=== PATIENT | male | born 1970 ===

== ENCOUNTER 2017-08-27 11:06 | Emergency (ER) | payer BC ==
[2017-08-27 12:13] VITALS: BP 131/93
--- NOTE | 2017-08-27 12:31 | UC ---
Lower Extremity/Ankle HPI - HPI Summary HPI Summary: LEFT FOOT PAIN X 1 DAY + INJURY , A PICTURE FELL ON HIS FOOT THIS MORNING + PAIN AND SWELLING OF LEFT FOOT - History of Current Complaint Chief Complaint: UCLowerExtremity Stated Complaint: LEFT FOOT COMPLAINT Time Seen by Provider: 08/27/17 12:18 Hx Obtained From: Patient Onset/Duration: Sudden Onset, Lasting Hours - 2 Severity Initially: Severe Severity Currently: Moderate Aggravating Factor(s): Standing, Ambulation Alleviating Factor(s): Rest, Elevation, Ice Able to Bear Weight: Yes - Allergies/Home Medications Allergies/Adverse Reactions: Allergies Allergy/AdvReac Type Severity Reaction Status Date / Time No Known Allergies Allergy Verified 08/27/17 12:13 Home Medications: Home Medications Warfarin TAB(*) [Coumadin TAB(*)] 10 08/27/17 [History] PMH/Surg Hx/FS Hx/Imm Hx Previously Healthy: Yes - Surgical History Surgical History: Yes Surgery Procedure, Year, and Place: SINUS SURGERY - Family History Known Family History: Negative: Diabetes - Social History Alcohol Use: Rare Substance Use Type: Marijuana Smoking Status (MU): Never Smoked Tobacco - Immunization History Most Recent Influenza Vaccination: NOT CURRENT Review of Systems Constitutional: Negative Skin: Negative Eyes: Negative ENT: Negative Respiratory: Negative Cardiovascular: Negative Is Patient Immunocompromised?: No All Other Systems Reviewed And Are Negative: Yes Physical Exam Triage Information Reviewed: Yes Appearance: Well-Appearing, No Pain Distress, Well-Nourished Vital Signs: Initial Vital Signs Temp 98.5 F 08/27/17 12:07 Pulse 84 08/27/17 12:07 Resp 18 08/27/17 12:07 BP 131/93 08/27/17 12:07 Pulse Ox 98 08/27/17 12:07 Eye Exam: Normal ENT Exam: Normal ENT: Positive: Normal ENT inspection, Hearing grossly normal, Pharynx normal Neck exam: Normal Neck: Positive: Supple, Nontender, No Lymphadenopathy Respiratory: Positive: Chest non-tender, Lungs clear, Normal breath sounds Cardiovascular: Positive: RRR, No Murmur, Pulses Normal Musculoskeletal: Positive: Other: - RIGHT FOOT : + SWELLING , NO ERYTHEMA, + TENDERNESS 4TH AND 5TH METATARSAL Skin Exam: Normal Diagnostics - Laboratory Diagnostic Studies Completed/Ordered: xray left foot : no fracture seen Lower Extremity Course/Dx - Differential Dx/Diagnosis Provider Diagnoses: CONTUSION LEFT FOOT Discharge - Discharge Plan Condition: Stable Disposition: HOME Patient Education Materials: Foot Contusion (ED) Referrals: No Primary Care Phys,NOPCP [Primary Care Provider] - 7 Days
--- NOTE | 2017-08-27 12:51 | RAD ---
Indication: Heavy picture fell on top of LEFT foot. Lateral pain. Comparison: No relevant prior exams available on the [facility] PACS for comparison. Technique: AP, lateral, and oblique views LEFT foot. Report: Negative for fracture or malalignment. Unremarkable soft tissue contours. IMPRESSION: No radiographic evidence for LEFT foot injury.
== END 2017-08-27 13:07 | disposition home or self-care (01) ==
LOC: UCCORT 11:06
DX: S90.32XA Contusion of left foot, initial encounter (principal); W20.8XXA Other cause of strike by thrown, projected or falling object, initial encounter; Y92.9 Unspecified place or not applicable; Z79.01 Long term (current) use of anticoagulants; F12.90 Cannabis use, unspecified, uncomplicated
CPT/HCPCS: 99211; G0463